=== PATIENT | female | born 1975 | race Caucasian/White ===

== ENCOUNTER 2019-12-07 12:52 | Outpatient (CLI) | payer OTHER | END 2019-12-07 12:55 | disposition home or self-care (01) | LOC: RAD 12:52 | DX: M25.562 Pain in left knee (principal) ==

== ENCOUNTER 2020-03-08 14:48 | Outpatient (CLI) | payer OTHER | END 2020-03-08 14:53 | disposition home or self-care (01) | LOC: NUCLEAR 14:48 | PROVIDERS: ATTEND Orthopaedic Surgery | DX: I70.213 Atherosclerosis of native arteries of extremities with intermittent claudication, bilateral legs (principal); I73.89 Other specified peripheral vascular diseases; I87.2 Venous insufficiency (chronic) (peripheral) ==

== ENCOUNTER 2020-03-09 11:25 | Outpatient (CLI) | payer OTHER | END 2020-03-09 11:35 | disposition home or self-care (01) | LOC: NUCLEAR 11:25 | PROVIDERS: ATTEND Orthopaedic Surgery | DX: I70.213 Atherosclerosis of native arteries of extremities with intermittent claudication, bilateral legs (principal); I73.89 Other specified peripheral vascular diseases ==

== ENCOUNTER 2020-07-26 11:09 | Outpatient (CLI) | payer OTHER | END 2020-07-26 11:13 | disposition home or self-care (01) | LOC: RAD 11:09 | PROVIDERS: ATTEND Orthopaedic Surgery | DX: M25.561 Pain in right knee (principal) ==

== ENCOUNTER 2020-09-06 16:09 | Outpatient (CLI) | payer OTHER | END 2020-09-06 16:14 | disposition home or self-care (01) | LOC: RAD 16:09 | PROVIDERS: ATTEND Orthopaedic Surgery | DX: M25.561 Pain in right knee (principal); M25.522 Pain in left elbow ==

== ENCOUNTER 2023-05-22 11:30 | Outpatient (CLI) | payer OTHER | END 2023-05-22 11:39 | disposition home or self-care (01) | LOC: RAD 11:30 | PROVIDERS: ATTEND Orthopaedic Surgery | DX: M25.561 Pain in right knee (principal); M25.562 Pain in left knee ==